=== PATIENT | male | born 1980 | race Caucasian/White ===

== ENCOUNTER 2016-08-20 17:20 | Emergency (ER) | payer BC, OTHER ==
[2016-08-20] MEDS ORDERED: IBUPROFEN 600 MG TABLET PO ONE (18:11)
[2016-08-20] MEDS ORDERED: ACETAMINOPHEN 325 MG TABLET PO ONE (18:11)
[2016-08-20] MEDS ORDERED: LIDOCAINE 1%/EPINEPHRINE INJ 20 ML VIAL INJ ONE (18:11)
[2016-08-20] MEDS ORDERED: DIPH/PERTUSS(ACELL)/TETANUS VAC/PF 0.5 ML SYR (>=10YO) IM ONE (18:11)
--- NOTE | 2016-08-20 18:14 | ER Document Report ---
ED General - General Chief Complaint: Laceration Stated Complaint: LEFT ARM INJURY Notes: Patient is a 36-year-old male who presents after sustaining a laceration to his right wrist when clearing debris using a machete. He did hit his wrist accidentally. He sustained a 3 cm laceration to the area. He notes a constant , dull, aching pain to the area. Nothing improves or worsens the pain. No history of similar injury in the past. He is right-hand dominant. He did not sustain any additional injuries. TRAVEL OUTSIDE OF THE [place] IN LAST 30 DAYS: No - Related Data Allergies/Adverse Reactions: No Known Allergies Allergy (Verified 08/20/16 18:13) Home Medications: Current Home Medications No Home Medications 08/20/16 [History] Past Medical History - General Information source: Patient - Social History Smoking Status: Never Smoker Frequency of alcohol use: None Drug Abuse: None Lives with: Spouse/Significant other Family History: Reviewed & Not Pertinent Patient has suicidal ideation: No Patient has homicidal ideation: No Renal/ Medical History: Denies: Hx Peritoneal Dialysis Review of Systems - Review of Systems Notes: Constitutional: Negative for fever. Eyes: Negative for visual changes. ENT: Negative for facial injury Cardiovascular: Negative for chest injury. Respiratory: Negative for shortness of breath. Gastrointestinal: Negative for abdominal injury. Genitourinary: Negative for genital injury Musculoskeletal: Negative for back injury. Skin: Positive for laceration/abrasions. Neurological: Negative for head injury. Physical Exam - Vital signs Vitals: Temp Pulse Resp BP Pulse Ox 97.8 F 55 L 18 114/71 100 08/20/16 17:29 08/20/16 17:29 08/20/16 17:29 08/20/16 17:29 08/20/16 17:29 Interpretation: Bradycardic Notes: PHYSICAL EXAMINATION: GENERAL: Well-appearing, well-nourished and in no acute distress. HEAD: Atraumatic, normocephalic. EYES: sclera anicteric, conjunctiva are normal. ENT: Moist mucous membranes. NECK: Normal range of motion LUNGS: Normal work of breathing HEART: 2+ radial pulses bilaterally EXTREMITIES: Normal flexion and extension against resistance at the level of the PIP of the right thumb. Normal flexion at the MCP of the right thumb but mute extension. NEUROLOGICAL: No focal neurological deficits. Moves all extremities spontaneously and on command. PSYCH: Normal mood, normal affect. SKIN: Warm, Dry, normal turgor, there is a 3 cm laceration of the right wrist just below the anatomic snuffbox with apparent exposure of 2 small tendons and apparent laceration of the tendon located to the more ulnar portion of the laceration Course - Re-evaluation Re-evalutation: 08/20/16 18:08 Patient presents with a 3cm laceration over the right wrist with apparent injury of the extensor tendon for the right thumb at the MCP. Laceration was loosely approximated. Dr.Sean Palacios consulted for follow-up in the office. Tetanus will be updated. At this time will discharge with return precautions and follow-up recommendations. Verbal discharge instructions given a the bedside and opportunity for questions given. Medication warnings reviewed. Patient is in agreement with this plan and has verbalized understanding of return precautions and the need for primary care follow-up in the next 24-72 hours. - Vital Signs Vital signs: Temp Pulse Resp BP Pulse Ox 97.8 F 55 L 18 114/71 100 08/20/16 17:29 08/20/16 17:29 08/20/16 17:29 08/20/16 17:29 08/20/16 17:29 Procedures - Immobilization Right Hand Pre-Proc Neuro Vasc Exam: Normal Immobilizer type: Thumb spica Performed by: Provider assisted Post-Proc Neuro Vasc Exam: Normal Alignment checked and good: Yes - Laceration/Wound Repair Right Wrist Time completed: 18:40 Wound length (cm): 3 Wound's Depth, Shape: Superficial Laceration pre-procedure: Sterile PPE donned Anesthetic type: 1% Lidocaine w/epi Volume Anesthetic (mLs): 2 Wound explored: Contaminated Wound Debrided: Moderate Wound Repaired With: Sutures Suture Size/Type: 4:0 Number of Sutures: 5 Layer Closure?: No Post-procedure wound care: Sterile dressing applied, Splint applied Post-procedure NV exam normal: Yes Complications: No Discharge - Discharge Clinical Impression: Laceration of right wrist Qualifiers: Encounter type: initial encounter Qualified Code(s): S61.511A - Laceration without foreign body of right wrist, initial encounter Injury of extensor tendon of right hand Qualifiers: Encounter type: initial encounter Qualified Code(s): S66.901A - Unspecified injury of unspecified muscle, fascia and tendon at wrist and hand level, right hand, initial encounter Condition: Good Disposition: HOME, SELF-CARE Additional Instructions: YOU NEED TO FOLLOW-UP WITH ORTHOPEDIC SURGERY FOR POSSIBLE TENDON REPAIR. Please return to your primary doctor, the ED, or an urgent care in 7 days for suture removal. Return immediately if you develop spreading redness around the wound, pus from the wound, worsening pain, or a fever of >100.4. Keep the area clean and dry. Wash gently with soap and water twice daily and cover with antibiotic ointment. Referrals: SEA PALACIOS MD [ACTIVE STAFF] - Follow up in 3-5 days
[2016-08-20 19:08] VITALS: BP 112/70
== END 2016-08-20 18:56 | disposition home or self-care (01) ==
LOC: ER 17:20
PROC: 0HQDXZZ Repair Right Lower Arm Skin, External Approach (ICD-10-PCS; principal; 2016-08-20)
DX: S61.511A Laceration without foreign body of right wrist, initial encounter (principal); S66.901A Unspecified injury of unspecified muscle, fascia and tendon at wrist and hand level, right hand, initial encounter; W26.0XXA Contact with knife, initial encounter; Y93.H2 Activity, gardening and landscaping; Z23 Encounter for immunization
CPT/HCPCS: 12002; 99282; 90471; 90715; J3490

== ENCOUNTER 2016-08-25 10:30 | Day surgery (SDC) | payer BC ==
[~2016-08-25 10:30] MED LIST: BUPIVACAINE HCL 0.25% /EPINEPHRINE INJ/PF 30 ML SDV ONE
[2016-08-25 11:16] LABS: HEMATOCRIT 41.7 % (37.9-51.0); HEMOGLOBIN 14.2 g/dL (13.5-17.0); HGB HCT DIFFERENCE 0.9; MEAN CORPUSCULAR HEMOGLOBIN 29.8 pg (27.0-33.4); MEAN CORPUSCULAR HGB CONC 34.1 g/dL (32.0-36.0); MEAN CORPUSCULAR VOLUME 87 fl (80-97); RED BLOOD COUNT 4.77 10^6/uL (4.35-5.55); RED CELL DISTRIBUTION WIDTH 13.6 % (11.5-14.0); WHITE BLOOD COUNT 7.4 10^3/uL (4.0-10.5)
[2016-08-25] MEDS ORDERED: CEFAZOLIN 2 GM/D5W RTU 2 GM/50 ML RTUPB IV ONE (11:20)
[2016-08-25 11:23] LABS: PROTHROMBIN TIME 12.6 SEC (11.4-15.4)
[2016-08-25 11:33] LABS: ANION GAP 10 (5-19); BLOOD UREA NITROGEN 15 mg/dL (7-20); CALCIUM 9.5 mg/dL (8.4-10.2); CARBON DIOXIDE 30 mmol/L (22-30); CHLORIDE 103 mmol/L (98-107); CREATININE RESULT 0.73 mg/dL (0.52-1.25); GLUCOSE 88 mg/dL (75-110); SODIUM 142.8 mmol/L (137-145)
[2016-08-25 11:34] LABS: POTASSIUM 4.7 mmol/L (3.6-5.0)
[2016-08-25] MEDS ORDERED: ALBUTEROL SULFATE 0.083% NEB 2.5 MG/3 ML AMPUL NEB ONE (11:46)
[2016-08-25] MEDS ORDERED: FENTANYL CITRATE INJ/PF 250 MCG/5 ML AMPULE ONE (11:59)
[2016-08-25] MEDS ORDERED: MIDAZOLAM 2 MG/2 ML INJ ONE (11:59)
[2016-08-25] MEDS ORDERED: PROPOFOL INJ 200 MG/20 ML VIAL IV ONE (12:00)
[2016-08-25] MEDS ORDERED: ACETAMINOPHEN 100 ML IV ONE (12:00)
[2016-08-25] MEDS ORDERED: PROMETHAZINE HCL INJ 25 MG/1 ML VIAL IV PRN ×2 (12:35)
[2016-08-25] MEDS ORDERED: FENTANYL CITRATE INJ/PF 100 MCG/2 ML AMPUL IV PRN ×3 (12:35)
[2016-08-25] MEDS ORDERED: MORPHINE SULFATE 10 MG/ML INJ IV PRN (12:35)
[2016-08-25] MEDS ORDERED: OXYCODONE-ACETAMINOPHEN 5-325 MG TABLET PO PRN ×2 (12:35)
[2016-08-25] MEDS ORDERED: DIPHENHYDRAMINE HCL 50 MG/ML VIAL IV PRN (12:35)
[2016-08-25] MEDS ORDERED: MEPERIDINE HCL/PF INJ 25 MG/1 ML DISP.SYRIN IV PRN (12:35)
--- NOTE | 2016-08-25 13:35 | Operative Report ---
Operative Report DATE OF SURGERY: 08/25/16 PREOPERATIVE DIAGNOSIS: Complex left wrist laceration with transection of the EPB and the superficial radial nerve OPERATION: Wound exploration, repair of EPB, repair superficial radial nerve SURGEON: SEA PALACIOS ANESTHESIA: GA PROCEDURE: The patient is a transverse laceration over the radial dorsal border of the junction middle and distal thirds of the radius. The wound is extended proximally and distally in a Z-type fashion. The superficial radial nerve. There have been transection is identified and the 2 ends labeled. The EPB that has been transected as identified and was mobilized. The EPL seems to be intact. EPB is repaired using a running Krakw 3-0 Ethibond suture. The radial nerve is reapproximated using an oxygen nerve conduit and secured at either end with an 8-0 suture. At this point the tourniquet was deflated. The wounds irrigated. Hemostasis obtained with bipolar cautery. The wound is reapproximated using interrupted nylon. A sterile compressive dressing dressing and a thumb abduction splint is applied. The patient's returned to recovery room in satisfactory condition.
[2016-08-25] MEDS ORDERED: ONDANSETRON 4 MG TAB.RAPDIS PO PRN (13:48)
[2016-08-25] MEDS ORDERED: OXYCODONE HCL IR 5 MG TABLET PO PRN (13:48)
[2016-08-25] MEDS ORDERED: FENTANYL CITRATE INJ/PF 100 MCG/2 ML AMPUL ONE (13:58)
[2016-08-25 15:36] VITALS: BP 102/62
[2016-08-25] MEDS ORDERED: IBUPROFEN 800 MG in NORMAL SALINE 250 ML IV ONE (16:00)
== END 2016-08-25 15:55 | disposition home or self-care (01) ==
LOC: OROUT 10:30
PROVIDERS: ATTEND Orthopaedic Surgery
PROC: 01U607Z Supplement Radial Nerve with Autologous Tissue Substitute, Open Approach (ICD-10-PCS; 2016-08-25)
PROC: 0LQ60ZZ Repair Left Lower Arm and Wrist Tendon, Open Approach (ICD-10-PCS; principal; 2016-08-25 12:30)
DX: S64.22XA Injury of radial nerve at wrist and hand level of left arm, initial encounter (principal); S56.302A Unspecified injury of extensor or abductor muscles, fascia and tendons of left thumb at forearm level, initial encounter; S61.511A Laceration without foreign body of right wrist, initial encounter; W26.0XXA Contact with knife, initial encounter; Y92.69 Other specified industrial and construction area as the place of occurrence of the external cause; M25.532 Pain in left wrist; F17.210 Nicotine dependence, cigarettes, uncomplicated
CPT/HCPCS: 36415; 85027; 85610; 85730; 80048; 25270; 64910; J2250; J3490; J3010 ×2; J2704; J0690; J0131; 1810; J1741; J7050